=== PATIENT | male | born 1960 | race Caucasian/White ===

== ENCOUNTER 2018-10-05 07:24 | Emergency (ER) | payer BC ==
--- NOTE | 2018-10-05 08:03 | EDM.PDOC ---
ED HPI GENERAL MEDICAL PROBLEM - General Chief Complaint: Lower Extremity Injury/Pain Stated Complaint: right lower leg pain Time Seen by Provider: 10/05/18 07:43 Source of Information: Reports: Patient History Limitations: Reports: No Limitations - History of Present Illness INITIAL COMMENTS - FREE TEXT/NARRATIVE: History of present illness: []Patient complains of bruising and his right lower leg. He denies any trauma that he recalls and states he has no real pain in the leg. Review of systems: As per history of present illness and below otherwise all systems reviewed and negative. Past medical history: As per history of present illness and as reviewed below otherwise noncontributory. Surgical history: As per history of present illness and as reviewed below otherwise noncontributory. Social history: No reported history of drug or alcohol abuse. Family history: As per history of present illness and as reviewed below otherwise noncontributory. Physical exam: General: Well developed, well nourished in NAD HEENT: Atraumatic, normocephalic, pupils reactive, negative for conjunctival pallor or scleral icterus, mucous membranes moist, throat clear, neck supple, nontender, trachea midline. Lungs: Clear to auscultation, breath sounds equal bilaterally, chest nontender. Heart: S1S2, regular, negative for clicks, rubs, or JVD. Abdomen: NABS, Soft, nondistended, nontender. Negative for masses or hepatosplenomegaly. Negative for costovertebral tenderness. Pelvis: Stable nontender. Genitourinary: Deferred. Rectal: Deferred. Extremities: Right lower extremity with ecchymosis around the knee and down the leg. There is erythema of the lower half of the leg with warmth to palpation Some edema palpable no infected wounds, negative for cords or calf pain. Neurovascular unremarkable. Neuro: Awake, alert, oriented. Cranial nerves II through XII unremarkable. Cerebellum unremarkable. Motor and sensory unremarkable throughout. Exam nonfocal. Skin:warm and dry Diagnostics: Doppler ultrasound negative for DVT, CBC, chemistry Therapeutics: None ED Course: Unremarkable Impression: New onset diabetes, right leg cellulitis Prescriptions: Keflex Plan: Follow-up with primary care with Dr. Daly this Thursday as we have scheduled your appointment for you. Definitive disposition and diagnosis as appropriate pending reevaluation and review of above. Right Knee Pain Score (Numeric/FACES): 2 - Related Data Allergies Allergy/AdvReac Type Severity Reaction Status Date / Time No Known Allergies Allergy Verified 10/05/18 07:45 Home Meds: Home Meds Lisinopril 10 mg PO DAILY 10/13/14 [History] Tamsulosin HCl [Flomax] 0.4 mg PO DAILY 10/13/14 [History] amLODIPine Besylate [Amlodipine Besylate] 10 mg PO DAILY 10/13/14 [History] hydroCHLOROthiazide [Hydrochlorothiazide] 25 mg PO DAILY 10/13/14 [History] Multivitamin [Multivitamins] 1 each PO ASDIRECTED 10/17/14 [History] Milton-3/DHA/Epa/Fish Oil [Fish Oil 500 MG Softgel] 1 each PO ASDIRECTED [History] S-Adenosylmethionine Sul Tosyl [Vel-E] 400 mg PO ASDIRECTED 10/17/14 [History] Cephalexin [Keflex] 500 mg PO TID #30 capsule 10/05/18 [Rx] Past Medical History Cardiovascular History: Reports: Hypertension Respiratory History: Reports: None Gastrointestinal History: Reports: None Genitourinary History: Reports: BPH Musculoskeletal History: Reports: None Neurological History: Reports: None Psychiatric History: Reports: None Endocrine/Metabolic History: Reports: None Hematologic History: Reports: None Oncologic (Cancer) History: Reports: None Dermatologic History: Reports: None - Infectious Disease History Infectious Disease History: Reports: None - Past Surgical History HEENT Surgical History: Reports: Other (See Below) Other HEENT Surgeries/Procedures: brain surgery Social & Family History - Tobacco Use Smoking Status *Q: Never Smoker Second Hand Smoke Exposure: No - Caffeine Use Caffeine Use: Reports: None - Recreational Drug Use Recreational Drug Use: No Review of Systems - Review of Systems Review Of Systems: ROS reveals no pertinent complaints other than HPI. ED EXAM, GENERAL - Physical Exam Exam: See Below (History of present illness:) Course - Vital Signs Last Recorded V/S: Last Vital Signs Temp 97.1 F 10/05/18 07:41 Pulse 92 10/05/18 09:45 Resp 18 10/05/18 09:45 BP 125/86 10/05/18 09:45 Pulse Ox 95 10/05/18 09:45 - Orders/Labs/Meds Labs: Laboratory Tests 10/05/18 10/05/18 10/05/18 Range/Units 08:10 08:10 08:10 WBC 9.16 (4.0-11.0) K/uL RBC 4.90 (4.50-5.90) M/uL Hgb 14.4 (13.0-17.0) g/dL Hct 41.4 (38.0-50.0) % MCV 84.5 (80.0-98.0) fL MCH 29.4 (27.0-32.0) pg MCHC 34.8 (31.0-37.0) g/dL RDW Std Deviation 39.2 (28.0-62.0) fl RDW Coeff of Neil 13 (11.0-15.0) % Plt Count 234 (150-400) K/uL MPV 10.40 (7.40-12.00) fL Neut % (Auto) 75.9 (48.0-80.0) % Lymph % (Auto) 13.2 L (16.0-40.0) % Hernando % (Auto) 9.6 (0.0-15.0) % Eos % (Auto) 1.0 (0.0-7.0) % Baso % (Auto) 0.3 (0.0-1.5) % Neut # (Auto) 7.0 H (1.4-5.7) K/uL Lymph # (Auto) 1.2 (0.6-2.4) K/uL Hernando # (Auto) 0.9 H (0.0-0.8) K/uL Eos # (Auto) 0.1 (0.0-0.7) K/uL Baso # (Auto) 0.0 (0.0-0.1) K/uL Nucleated RBC % 0.0 /100WBC Nucleated RBCs # 0 K/uL INR 0.96 APTT 26.2 (18.6-31.3) SEC Sodium 136 (136-148) mmol/L Potassium 4.0 (3.5-5.1) mmol/L Chloride 100 (98-107) mmol/L Carbon Dioxide 28.1 (21.0-32.0) mmol/L BUN 18 (7.0-18.0) mg/dL Creatinine 1.2 (0.8-1.3) mg/dL Est Cr Clr Drug Dosing 69.28 mL/min Estimated GFR (MDRD) > 60.0 ml/min Glucose 239 H (74-106) mg/dL POC Glucose (60-110) mg/dL Calcium 9.1 (8.5-10.1) mg/dL Total Bilirubin 0.5 (0.2-1.0) mg/dL AST 15 (15-37) IU/L ALT 31 (14-63) IU/L Alkaline Phosphatase 126 H (46-116) U/L Total Protein 6.8 (6.4-8.2) g/dL Albumin 3.3 L (3.4-5.0) g/dL Globulin 3.5 (2.6-4.0) g/dL Albumin/Globulin Ratio 0.9 (0.9-1.6) 10/05/18 Range/Units 09:51 WBC (4.0-11.0) K/uL RBC (4.50-5.90) M/uL Hgb (13.0-17.0) g/dL Hct (38.0-50.0) % MCV (80.0-98.0) fL MCH (27.0-32.0) pg MCHC (31.0-37.0) g/dL RDW Std Deviation (28.0-62.0) fl RDW Coeff of Neil (11.0-15.0) % Plt Count (150-400) K/uL MPV (7.40-12.00) fL Neut % (Auto) (48.0-80.0) % Lymph % (Auto) (16.0-40.0) % Hernando % (Auto) (0.0-15.0) % Eos % (Auto) (0.0-7.0) % Baso % (Auto) (0.0-1.5) % Neut # (Auto) (1.4-5.7) K/uL Lymph # (Auto) (0.6-2.4) K/uL Hernando # (Auto) (0.0-0.8) K/uL Eos # (Auto) (0.0-0.7) K/uL Baso # (Auto) (0.0-0.1) K/uL Nucleated RBC % /100WBC Nucleated RBCs # K/uL INR APTT (18.6-31.3) SEC Sodium (136-148) mmol/L Potassium (3.5-5.1) mmol/L Chloride (98-107) mmol/L Carbon Dioxide (21.0-32.0) mmol/L BUN (7.0-18.0) mg/dL Creatinine (0.8-1.3) mg/dL Est Cr Clr Drug Dosing mL/min Estimated GFR (MDRD) ml/min Glucose (74-106) mg/dL POC Glucose 146 H (60-110) mg/dL Calcium (8.5-10.1) mg/dL Total Bilirubin (0.2-1.0) mg/dL AST (15-37) IU/L ALT (14-63) IU/L Alkaline Phosphatase (46-116) U/L Total Protein (6.4-8.2) g/dL Albumin (3.4-5.0) g/dL Globulin (2.6-4.0) g/dL Albumin/Globulin Ratio (0.9-1.6) Meds: Medications Discontinued Medications Generic Name Dose Route Start Last Admin Trade Name Freq PRN Reason Stop Dose Admin Ceftriaxone Sodium 1,000 mg/ 1 mls @ 1 mls/sec 10/05/18 09:04 10/05/18 09:28 Lidocaine HCl IM 10/05/18 09:05 1 mls/sec ONETIME ONE Administration Insulin Human Regular 6 unit 10/05/18 09:00 10/05/18 09:28 Novolin R SUBCUT 10/05/18 09:01 6 units ONETIME ONE Administration Protocol Departure - Departure Time of Disposition: 15:51 Disposition: Home, Self-Care 01 Condition: Good Clinical Impression: Cellulitis of right leg, Diabetes mellitus, new onset - Discharge Information *PRESCRIPTION DRUG MONITORING PROGRAM REVIEWED*: No *COPY OF PRESCRIPTION DRUG MONITORING REPORT IN PATIENT ASTER: No Prescriptions: Cephalexin [Keflex] 500 mg PO TID #30 capsule Instructions: Type 2 Diabetes Mellitus, Diagnosis, Adult, Cellulitis, Adult, [id number] Referrals: Troy Daly MD [Primary Care Provider] - Forms: ED Department Discharge Additional Instructions: The following information is given to patients seen in the emergency department who are being discharged to home. This information is to outline your options for follow-up care. We provide all patients seen in our emergency department with a follow-up referral. The need for follow-up, as well as the timing and circumstances, are variable depending upon the specifics of your emergency department visit. If you don't have a primary care physician on staff, we will provide you with a referral. We always advise you to contact your personal physician following an emergency department visit to inform them of the circumstance of the visit and for follow-up with them and/or the need for any referrals to a consulting specialist. The emergency department will also refer you to a specialist when appropriate. This referral assures that you have the opportunity for follow-up care with a specialist. All of these measure are taken in an effort to provide you with optimal care, which includes your follow-up. Under all circumstances we always encourage you to contact your private physician who remains a resource for coordinating your care. When calling for follow-up care, please make the office aware that this follow-up is from your recent emergency room visit. If for any reason you are refused follow-up, please contact the [facility] Emergency Department at and asked to speak to the emergency department charge nurse. Follow-up with Dr. Daly as scheduled. Start meds today. Please keep your appointment with Dr. Daly Thursday09/07/18 at 1:30pm. If you need to change your appointment please call [facility].
[2018-10-05 08:44] LABS: CHLORIDE,CL 100 mmol/L (98-107); SODIUM,NA 136 mmol/L (136-148)
--- NOTE | 2018-10-05 08:55 | US ---
ULTRASOUND EXAMINATION OF the right lower extremity WITH DOPPLER HISTORY: Pain FINDINGS: Examination of the right leg was performed from the groin to the calf region. All visualized segments including common femoral, proximal greater saphenous, superficial femoral, popliteal and calf veins appear patent with good compressibility and augmentation. There is no evidence of deep vein thrombosis. IMPRESSION: No evidence of a DVT.
[2018-10-05] MEDS ORDERED: Insulin Regular, Human 100 Units/ML 10 ML Vial SUBCUT ONE (09:00)
[2018-10-05] MEDS ORDERED: cefTRIAXone 1,000 MG in Lidocaine 1% 1 ML IM ONE (09:04)
[2018-10-05 10:13] VITALS: BP 125/86
== END 2018-10-05 09:45 | disposition home or self-care (01) ==
LOC: MW.ED 07:24
DX: L03.115 Cellulitis of right lower limb (principal); E11.9 Type 2 diabetes mellitus without complications; I10 Essential (primary) hypertension; Z79.899 Other long term (current) drug therapy
CPT/HCPCS: 36415; 80053; 82962; 85025; 85610; 85730; 93971; 96372; 99284; J0696; J1815-GY

== ENCOUNTER 2020-01-15 16:52 | Emergency (ER) | payer BC ==
[2020-01-15] MEDS ORDERED: Sodium Chloride 0.9% 10 ML Syringe FLUSH PRN (17:09)
[2020-01-15] MEDS ORDERED: Sodium Chloride 0.9% 2.5 ML Syringe FLUSH PRN (17:09)
[2020-01-15] MEDS ORDERED: Ketorolac 30 MG/ML SDV IVPUSH ONE (17:40)
--- NOTE | 2020-01-15 17:40 | EDM.PDOC ---
ED HPI GENERAL MEDICAL PROBLEM - General Chief Complaint: Abdominal Pain Stated Complaint: LEFT LOWER PAIN Time Seen by Provider: 01/15/20 17:40 Source of Information: Reports: Patient History Limitations: Reports: No Limitations - History of Present Illness INITIAL COMMENTS - FREE TEXT/NARRATIVE: HISTORY AND PHYSICAL: History of present illness: Patient is 59-year-old year old male presents to the ED with complaint of abdominal pain. Patient states he has had the pain for the past week. Pain is in the left lower abdomen and flank. He states pain was intermittent until today it has been more persistent. He states he had had some nausea, vomiting, and diarrhea. He reports chills and temp at home tmax 100F. Past surgical history of umbilical hernia repair. Past medical history of hypertension and diabetes. Review of systems: As per history of present illness and below otherwise all systems reviewed and negative. Past medical history: As per history of present illness and as reviewed below otherwise noncontributory. Surgical history: As per history of present illness and as reviewed below otherwise noncontributory. Social history: No reported history of drug or alcohol abuse. Family history: As per history of present illness and as reviewed below otherwise noncontributory. Physical exam: General: Patient sitting comfortably in no acute distress and nontoxic appearing HEENT: Atraumatic, normocephalic, pupils reactive, negative for conjunctival pallor or scleral icterus, mucous membranes moist, throat clear, neck supple, nontender, trachea midline. No meningeal signs. Lungs: Clear to auscultation, breath sounds equal bilaterally, chest nontender. Heart: S1S2, regular, negative for clicks, rubs, or overt murmur. Abdomen: Abdomen in distended with diffuse abdominal tenderness, more significant tenderness in the right lower abdomen. Negative for masses or hepatosplenomegaly. Negative for costovertebral tenderness. No rigidity, rebound , guarding. Pelvis: Stable nontender. Genitourinary: Deferred. Rectal: Deferred. Extremities: Atraumatic, negative for cords or calf pain. Neurovascular unremarkable. Neuro: Awake, alert, oriented. Cranial nerves II through XII unremarkable. Cerebellum unremarkable. Motor and sensory unremarkable throughout. Exam nonfocal. Notes: EKG shows left bundle branch block. No previous EKGs to compare. CT shows a markedly distended bladder, markedly enlarged polycystic left kidney , right-sided hydronephrosis. Guzman catheter was placed. 4L of urine drained in ED. Diagnostics: CBC, CMP, lipase, UA, EKG, lactate, blood culture x 2 CT abdomen pelvis w/o contrast Therapeutics: 1L NS IV 30mg Toradol IV Calcium chloride 1gm Albuterol 10mg Neb Sodium Bicarb 50mEq Impression: Hyperkalemia, acute kidney injury, urinary retention, bladder distention, polycystic kidney, hydronephrosis Plan: Discussed with Dr. Daly at [facility], patient will be transferred via ground ambulance for further care and evaluation. Definitive disposition and diagnosis as appropriate pending reevaluation and review of above. LLQ Pain Score (Numeric/FACES): 5 - Related Data Allergies Allergy/AdvReac Type Severity Reaction Status Date / Time No Known Allergies Allergy Verified 01/15/20 17:26 Home Meds: Home Meds Lisinopril 10 mg PO DAILY 10/13/14 [History] Tamsulosin HCl [Flomax] 0.8 mg PO BEDTIME 10/13/14 [History] amLODIPine Besylate [Amlodipine Besylate] 10 mg PO DAILY 10/13/14 [History] Multivitamin [Multivitamins] 1 each PO ASDIRECTED 10/17/14 [History] Rosuvastatin [Crestor] 5 mg PO DAILY 01/15/20 [History] Past Medical History Cardiovascular History: Reports: High Cholesterol, Hypertension Respiratory History: Reports: None Gastrointestinal History: Reports: None Genitourinary History: Reports: BPH Musculoskeletal History: Reports: None Neurological History: Reports: None Psychiatric History: Reports: None Endocrine/Metabolic History: Reports: None Hematologic History: Reports: None Oncologic (Cancer) History: Reports: Brain Dermatologic History: Reports: None - Infectious Disease History Infectious Disease History: Reports: None - Past Surgical History HEENT Surgical History: Reports: Other (See Below) Other HEENT Surgeries/Procedures: brain surgery GI Surgical History: Reports: Hernia, Abdominal Social & Family History - Tobacco Use Smoking Status *Q: Never Smoker - Caffeine Use Caffeine Use: Reports: Coffee - Recreational Drug Use Recreational Drug Use: No ED ROS GENERAL - Review of Systems Review Of Systems: Comprehensive ROS is negative, except as noted in HPI. ED EXAM, GI/ABD - Physical Exam Exam: See Below (see dictation) Course - Vital Signs Last Recorded V/S: Last Vital Signs Temp 96.9 F 05/24/20 17:24 Pulse 84 01/15/20 18:00 Resp 17 01/15/20 18:00 BP 158/86 H 01/15/20 18:00 Pulse Ox 95 01/15/20 18:00 - Orders/Labs/Meds Orders: Active Orders 24 hr Category Date Time Status EKG Documentation Completion [] STAT Care 01/15/20 18:38 Active Insert Guzman Catheter [Insert Urinary Catheter] [OM.PC] Care 01/15/20 20:15 Ordered Q24H RT Aerosol Therapy [RC] ASDIRECTED Care 01/15/20 18:47 Active Urinary Catheter Assessment [] ASDIRECTED Care 01/15/20 20:11 Active CULTURE BLOOD [BC] Stat Lab 01/15/20 19:10 Received CULTURE BLOOD [BC] Stat Lab 01/15/20 19:20 Received CULTURE URINE [RM] Stat Lab 01/15/20 18:29 Received Sodium Chloride 0.9% [Saline Flush] Med 01/15/20 17:09 Active 10 ml FLUSH ASDIRECTED PRN Sodium Chloride 0.9% [Saline Flush] Med 01/15/20 17:09 Active 2.5 ml FLUSH ASDIRECTED PRN Blood Culture x2 Reflex Set [OM.PC] Stat Oth 01/15/20 18:39 Ordered Saline Lock Insert [OM.PC] Stat Oth 01/15/20 17:09 Ordered Medication Orders Sodium Chloride (Saline Flush) 10 ml FLUSH ASDIRECTED PRN PRN Reason: Keep Vein Open Sodium Chloride (Saline Flush) 2.5 ml FLUSH ASDIRECTED PRN PRN Reason: Keep Vein Open Labs: Laboratory Tests 01/15/20 01/15/20 01/15/20 Range/Units 17:30 17:30 17:30 WBC 15.19 H (4.0-11.0) K/uL RBC 4.33 L (4.50-5.90) M/uL Hgb 12.8 L (13.0-17.0) g/dL Hct 38.0 (38.0-50.0) % MCV 87.8 (80.0-98.0) fL MCH 29.6 (27.0-32.0) pg MCHC 33.7 (31.0-37.0) g/dL RDW Std Deviation 43.6 (28.0-62.0) fl RDW Coeff of Neil 14 (11.0-15.0) % Plt Count 205 (150-400) K/uL MPV 11.40 (7.40-12.00) fL Add Manual Diff YES Neutrophils % (Manual) 93 H (48.0-80.0) % Band Neutrophils % 3 % Lymphocytes % (Manual) 3 L (16.0-40.0) % Monocytes % (Manual) 1 (0.0-15.0) % Nucleated RBC % 0.0 /100WBC Absolute Seg Neuts 14.1 H (1.4-5.7) Band Neutrophils # 0.5 Lymphocytes # (Manual) 0.5 L (0.6-2.4) Monocytes # (Manual) 0.2 (0.0-0.8) Nucleated RBCs # 0 K/uL Lactate 1.1 (0.20-2.00) mmol/L Sodium 135 L (136-148) mmol/L Potassium 6.1 H (3.5-5.1) mmol/L Chloride 102 (98-107) mmol/L Carbon Dioxide 18.2 L (21.0-32.0) mmol/L BUN 84 H (7.0-18.0) mg/dL Creatinine 5.7 H (0.8-1.3) mg/dL Est Cr Clr Drug Dosing 13.95 mL/min Estimated GFR (MDRD) 10.3 ml/min Glucose 166 H (74-106) mg/dL Calcium 9.2 (8.5-10.1) mg/dL Total Bilirubin 0.3 (0.2-1.0) mg/dL AST 12 L (15-37) IU/L ALT 21 (14-63) IU/L Alkaline Phosphatase 103 (46-116) U/L Total Protein 8.0 (6.4-8.2) g/dL Albumin 4.2 (3.4-5.0) g/dL Globulin 3.8 (2.6-4.0) g/dL Albumin/Globulin Ratio 1.1 (0.9-1.6) Lipase 182 (73-393) U/L Urine Color Urine Appearance Urine pH (5.0-8.0) Ur Specific [place] (1.001-1.035) Urine Protein (NEGATIVE) mg/dL Urine Glucose (UA) (NEGATIVE) mg/dL Urine Ketones (NEGATIVE) mg/dL Urine Occult Blood (NEGATIVE) Urine Nitrite (NEGATIVE) Urine Bilirubin (NEGATIVE) Urine Urobilinogen (<2.0) EU/dL Ur Leukocyte Esterase (NEGATIVE) Urine RBC (0-2/HPF) Urine WBC (0-5/HPF) Ur Epithelial Cells (NONE-FEW) Urine Bacteria (NEGATIVE) 01/15/20 Range/Units 18:29 WBC (4.0-11.0) K/uL RBC (4.50-5.90) M/uL Hgb (13.0-17.0) g/dL Hct (38.0-50.0) % MCV (80.0-98.0) fL MCH (27.0-32.0) pg MCHC (31.0-37.0) g/dL RDW Std Deviation (28.0-62.0) fl RDW Coeff of Neil (11.0-15.0) % Plt Count (150-400) K/uL MPV (7.40-12.00) fL Add Manual Diff Neutrophils % (Manual) (48.0-80.0) % Band Neutrophils % % Lymphocytes % (Manual) (16.0-40.0) % Monocytes % (Manual) (0.0-15.0) % Nucleated RBC % /100WBC Absolute Seg Neuts (1.4-5.7) Band Neutrophils # Lymphocytes # (Manual) (0.6-2.4) Monocytes # (Manual) (0.0-0.8) Nucleated RBCs # K/uL Lactate (0.20-2.00) mmol/L Sodium (136-148) mmol/L Potassium (3.5-5.1) mmol/L Chloride (98-107) mmol/L Carbon Dioxide (21.0-32.0) mmol/L BUN (7.0-18.0) mg/dL Creatinine (0.8-1.3) mg/dL Est Cr Clr Drug Dosing mL/min Estimated GFR (MDRD) ml/min Glucose (74-106) mg/dL Calcium (8.5-10.1) mg/dL Total Bilirubin (0.2-1.0) mg/dL AST (15-37) IU/L ALT (14-63) IU/L Alkaline Phosphatase (46-116) U/L Total Protein (6.4-8.2) g/dL Albumin (3.4-5.0) g/dL Globulin (2.6-4.0) g/dL Albumin/Globulin Ratio (0.9-1.6) Lipase (73-393) U/L Urine Color YELLOW Urine Appearance SLT CLOUDY Urine pH 5.5 (5.0-8.0) Ur Specific [place] <= 1.005 (1.001-1.035) Urine Protein NEGATIVE (NEGATIVE) mg/dL Urine Glucose (UA) NEGATIVE (NEGATIVE) mg/dL Urine Ketones NEGATIVE (NEGATIVE) mg/dL Urine Occult Blood SMALL H (NEGATIVE) Urine Nitrite NEGATIVE (NEGATIVE) Urine Bilirubin NEGATIVE (NEGATIVE) Urine Urobilinogen 0.2 (<2.0) EU/dL Ur Leukocyte Esterase TRACE H (NEGATIVE) Urine RBC 1-3 (0-2/HPF) Urine WBC 1-3 (0-5/HPF) Ur Epithelial Cells RARE (NONE-FEW) Urine Bacteria RARE (NEGATIVE) Meds: Medications Generic Name Dose Route Start Last Admin Trade Name Freq PRN Reason Stop Dose Admin Sodium Chloride 10 ml 01/15/20 17:09 Saline Flush FLUSH ASDIRECTED PRN Keep Vein Open Sodium Chloride 2.5 ml 01/15/20 17:09 Saline Flush FLUSH ASDIRECTED PRN Keep Vein Open Discontinued Medications Generic Name Dose Route Start Last Admin Trade Name Freq PRN Reason Stop Dose Admin Albuterol 10 mg 01/15/20 18:47 01/15/20 19:09 Proventil Neb Soln NEB 01/15/20 18:48 10 mg ONETIME ONE Administration Calcium Chloride 1 gm 01/15/20 18:38 01/15/20 19:28 Calcium Chloride 10% IVPUSH 01/15/20 18:39 1 gm ONETIME ONE Administration Ketorolac Tromethamine 30 mg 01/15/20 17:40 01/15/20 17:48 Toradol IVPUSH 01/15/20 17:41 30 mg ONETIME ONE Administration Sodium Bicarbonate 50 meq 01/15/20 18:47 01/15/20 19:14 Sodium Bicarbonate 8.4% IVPUSH 01/15/20 18:48 50 meq ONETIME ONE Administration Departure - Departure Time of Disposition: 20:21 Disposition: DC/Tfer to Acute Hospital 02 Condition: Good Clinical Impression: Acute kidney injury, Hyperkalemia, Bladder distention, Polycystic kidney, Hydronephrosis - Discharge Information Referrals: Troy Daly MD [Primary Care Provider] - Forms: ED Department Discharge Sepsis Event Note - Evaluation Sepsis Screening Result: No Definite Risk - Focused Exam Vital Signs: Vital Signs Temp Pulse Resp BP Pulse Ox 01/15/20 18:00 84 17 158/86 H 95 01/15/20 17:24 96.9 F 89 18 164/77 H 96 Date Exam was Performed: 01/15/20 Time Exam was Performed: 20:13 - My Orders Last 24 Hours: My Active Orders 01/15/20 17:09 Sodium Chloride 0.9% [Saline Flush] 10 ml FLUSH ASDIRECTED PRN Sodium Chloride 0.9% [Saline Flush] 2.5 ml FLUSH ASDIRECTED PRN Saline Lock Insert [OM.PC] Stat 01/15/20 18:29 CULTURE URINE [RM] Stat 01/15/20 18:38 EKG Documentation Completion [RC] STAT 01/15/20 18:39 Blood Culture x2 Reflex Set [OM.PC] Stat 01/15/20 18:47 RT Aerosol Therapy [RC] ASDIRECTED 01/15/20 19:10 CULTURE BLOOD [BC] Stat 01/15/20 19:20 CULTURE BLOOD [BC] Stat 01/15/20 20:11 Urinary Catheter Assessment [RC] ASDIRECTED 01/15/20 20:15 Insert Guzman Catheter [Insert Urinary Catheter] [OM.PC] Q24H - Assessment/Plan Last 24 Hours: My Active Orders 01/15/20 17:09 Sodium Chloride 0.9% [Saline Flush] 10 ml FLUSH ASDIRECTED PRN Sodium Chloride 0.9% [Saline Flush] 2.5 ml FLUSH ASDIRECTED PRN Saline Lock Insert [OM.PC] Stat 01/15/20 18:29 CULTURE URINE [RM] Stat 01/15/20 18:38 EKG Documentation Completion [RC] STAT 01/15/20 18:39 Blood Culture x2 Reflex Set [OM.PC] Stat 01/15/20 18:47 RT Aerosol Therapy [RC] ASDIRECTED 01/15/20 19:10 CULTURE BLOOD [BC] Stat 01/15/20 19:20 CULTURE BLOOD [BC] Stat 01/15/20 20:11 Urinary Catheter Assessment [RC] ASDIRECTED 01/15/20 20:15 Insert Guzman Catheter [Insert Urinary Catheter] [OM.PC] Q24H
[2020-01-15 18:06] LABS: CARBON DIOXIDE,CO2 18.2 mmol/L (21.0-32.0); POTASSIUM,K 6.1 mmol/L (3.5-5.1)
[2020-01-15] MEDS ORDERED: Calcium Chloride 10% 1 GM/10 ML Syringe IVPUSH ONE (18:38)
[2020-01-15] MEDS ORDERED: Sodium Bicarbonate 8.4% 50 MEQ/50 ML Syringe IVPUSH ONE (18:47)
[2020-01-15] MEDS ORDERED: Albuterol 0.083% 2.5 MG/3 ML Neb Soln NEB ONE (18:47)
--- NOTE | 2020-01-15 19:55 | CT ---
Indication: Flank pain. Technique: Multiple contiguous axial images were obtained from the lung bases through the symphysis pubis without intravenous contrast enhancement. Please note that all CT scans at this facility use dose modulation, iterative reconstruction, and/or weight-based dosing when appropriate to reduce radiation dose to as low as reasonably achievable. Comparison: None Findings: Heart is normal in size. Coronary artery calcifications are identified. The lung bases are clear. No infiltrate, pleural effusion, or pneumothorax is identified. The liver, spleen, gallbladder are normal. The right kidney demonstrates hydronephrosis. Right-sided hydroureter is identified. Enlargement of a polycystic left kidney is identified. The left kidney measures approximately 22 x 18 x 22 cm in size. The ureter is not definitely identified on the left. The bladder is markedly enlarged measuring approximately 18 x 18 x 18 cm in size. The source of the obstruction is not identified. In the pelvis, an enlarged prostate gland is identified up. However this is only moderate enlargement. The small and large bowel are normal in caliber. The appendix is normal in size. No free air free fluid is identified within the abdomen or pelvis. Impression: Markedly enlarged polycystic left kidney. Marked distention of the urinary bladder. Right-sided hydronephrosis. The source of the obstruction is uncertain. These findings were discussed with Carmela Briones at the time of this dictation. Please note that all CT scans at this facility use dose modulation, iterative reconstruction, and/or weight-based dosing when appropriate to reduce radiation dose to as low as reasonably achievable. Dictated by Kim Frances MD @ Jan 15 2020 7:39PM Signed by Dr. Kim Frances @ Jan 15 2020 7:53PM
[2020-01-15 20:18] VITALS: BP 142/81; PULSE 101
== END 2020-01-15 20:56 ==
LOC: MW.ED 16:52
DX: N17.9 Acute kidney failure, unspecified (principal); N13.2 Hydronephrosis with renal and ureteral calculous obstruction; E87.5 Hyperkalemia; N28.1 Cyst of kidney, acquired; N32.89 Other specified disorders of bladder; E78.00 Pure hypercholesterolemia, unspecified; I10 Essential (primary) hypertension; N40.0 Benign prostatic hyperplasia without lower urinary tract symptoms; Z79.899 Other long term (current) drug therapy
CPT/HCPCS: 36415; 51702; 74176; 80053; 81001; 83605; 83690; 85025; 87040; 87086; 93005; 94640; 96374; 96375; 99285; J1885

== ENCOUNTER 2020-03-03 14:29 | Emergency (ER) | payer BC ==
[2020-03-03 14:53] VITALS: BP 135/77; PULSE 70
--- NOTE | 2020-03-03 15:16 | EDM.PDOC ---
ED HPI GENERAL MEDICAL PROBLEM - General Chief Complaint: Genitourinary Problem Stated Complaint: NEEDS A CATHETER Time Seen by Provider: 03/03/20 15:05 - History of Present Illness INITIAL COMMENTS - FREE TEXT/NARRATIVE: History of present illness: Patient presents requesting a Guzman catheter placement she has normally uses a suprapubic catheter but his suprapubic became broken and dislodged during work the other day and he is now feeling like he is retaining urine he has multiple urological issues he feels well otherwise but he wants to have a Guzman placed until he can follow-up this week with his urologist. He does not feel ill no dysuria no fever no chills nothing makes it better or worse Review of systems: As per history of present illness and below otherwise all systems reviewed and negative. Past medical history: As per history of present illness and as reviewed below otherwise noncontributory. Surgical history: As per history of present illness and as reviewed below otherwise noncontributory. Social history: No reported history of drug or alcohol abuse. Family history: As per history of present illness and as reviewed below otherwise noncontributory. Physical exam: HEENT: Atraumatic, normocephalic, pupils reactive, negative for conjunctival pallor or scleral icterus, mucous membranes moist, throat clear, neck supple, nontender, trachea midline. Lungs: Clear to auscultation, breath sounds equal bilaterally, chest nontender. Heart: S1S2, regular, negative for clicks, rubs, or JVD. Abdomen: Soft, nondistended, nontender. Negative for masses or hepatosplenomegaly. Negative for costovertebral tenderness. Pelvis: Stable nontender. Genitourinary: Deferred. Rectal: Deferred. Extremities: Atraumatic, negative for cords or calf pain. Neurovascular unremarkable. Neuro: Awake, alert, oriented. Cranial nerves II through XII unremarkable. Cerebellum unremarkable. Motor and sensory unremarkable throughout. Exam nonfocal. Diagnostics: [] Therapeutics: [] Impression: [] Plan: Guzman discharge he has a urologist to follow-up with Thursday [] Definitive disposition and diagnosis as appropriate pending reevaluation and review of above. - Related Data Allergies Allergy/AdvReac Type Severity Reaction Status Date / Time No Known Allergies Allergy Verified 03/03/20 14:56 Home Meds: Home Meds Lisinopril 10 mg PO DAILY 10/13/14 [History] Tamsulosin HCl [Flomax] 0.8 mg PO BEDTIME 10/13/14 [History] amLODIPine Besylate [Amlodipine Besylate] 10 mg PO DAILY 10/13/14 [History] Multivitamin [Multivitamins] 1 each PO ASDIRECTED 10/17/14 [History] Rosuvastatin [Crestor] 5 mg PO DAILY 01/15/20 [History] Past Medical History HEENT History: Reports: Impaired Vision, Other (See Below) Other HEENT History: wears glasses Cardiovascular History: Reports: High Cholesterol, Hypertension Respiratory History: Reports: None Gastrointestinal History: Reports: None Genitourinary History: Reports: BPH Musculoskeletal History: Reports: None Neurological History: Reports: None Psychiatric History: Reports: None Endocrine/Metabolic History: Reports: None Hematologic History: Reports: None Oncologic (Cancer) History: Reports: Brain Dermatologic History: Reports: None - Infectious Disease History Infectious Disease History: Reports: None - Past Surgical History HEENT Surgical History: Reports: Other (See Below) Other HEENT Surgeries/Procedures: brain surgery Cardiovascular Surgical History: Reports: None GI Surgical History: Reports: Hernia, Abdominal Male Surgical History: Reports: Other (See Below) Other Male Surgeries/Procedures: with nephrostomy tube, suprapubic cath Oncologic Surgical History: Reports: None Social & Family History - Family History Family Medical History: Noncontributory - Tobacco Use Smoking Status *Q: Never Smoker Second Hand Smoke Exposure: No - Caffeine Use Caffeine Use: Reports: None - Recreational Drug Use Recreational Drug Use: No ED ROS GENERAL - Review of Systems Review Of Systems: See Below ED EXAM, GENERAL - Physical Exam Exam: See Below Course - Vital Signs Last Recorded V/S: Last Vital Signs Temp 36.4 C 03/03/20 14:47 Pulse 70 03/03/20 14:47 Resp 17 03/03/20 14:47 BP 135/77 03/03/20 14:47 Pulse Ox 98 03/03/20 14:47 - Orders/Labs/Meds Orders: Active Orders 24 hr Category Date Time Status Insert Guzman Catheter [Insert Urinary Catheter] [OM.PC] Care 03/03/20 15:15 Ordered Q24H Urinary Catheter Assessment [RC] ASDIRECTED Care 03/03/20 15:13 Ordered Departure - Departure Time of Disposition: 15:14 Disposition: Home, Self-Care 01 Condition: Good Clinical Impression: Urinary retention - Discharge Information *PRESCRIPTION DRUG MONITORING PROGRAM REVIEWED*: Not Applicable *COPY OF PRESCRIPTION DRUG MONITORING REPORT IN PATIENT ASTER: Not Applicable Instructions: Indwelling Urinary Catheter Care, Adult Referrals: Troy Daly MD [Primary Care Provider] - Additional Instructions: The following information is given to patients seen in the emergency department who are being discharged to home. This information is to outline your options for follow-up care. We provide all patients seen in our emergency department with a follow-up referral. The need for follow-up, as well as the timing and circumstances, are variable depending upon the specifics of your emergency department visit. If you don't have a primary care physician on staff, we will provide you with a referral. We always advise you to contact your personal physician following an emergency department visit to inform them of the circumstance of the visit and for follow-up with them and/or the need for any referrals to a consulting specialist. The emergency department will also refer you to a specialist when appropriate. This referral assures that you have the opportunity for follow-up care with a specialist. All of these measure are taken in an effort to provide you with optimal care, which includes your follow-up. Under all circumstances we always encourage you to contact your private physician who remains a resource for coordinating your care. When calling for follow-up care, please make the office aware that this follow-up is from your recent emergency room visit. If for any reason you are refused follow-up, please contact the [facility] Emergency Department at and asked to speak to the emergency department charge nurse. Sepsis Event Note (ED) - Evaluation Sepsis Screening Result: No Definite Risk - Focused Exam Vital Signs: Vital Signs Temp Pulse Resp BP Pulse Ox 03/03/20 14:47 36.4 C 70 17 135/77 98 - My Orders Last 24 Hours: My Active Orders 03/03/20 15:13 Urinary Catheter Assessment [RC] ASDIRECTED 03/03/20 15:15 Insert Guzman Catheter [Insert Urinary Catheter] [OM.PC] Q24H - Assessment/Plan Last 24 Hours: My Active Orders 03/03/20 15:13 Urinary Catheter Assessment [RC] ASDIRECTED 03/03/20 15:15 Insert Guzman Catheter [Insert Urinary Catheter] [OM.PC] Q24H
== END 2020-03-03 15:53 | disposition home or self-care (01) ==
LOC: MW.ED 14:29
DX: N40.1 Benign prostatic hyperplasia with lower urinary tract symptoms (principal); R33.8 Other retention of urine; E78.00 Pure hypercholesterolemia, unspecified; I10 Essential (primary) hypertension; Z79.899 Other long term (current) drug therapy
CPT/HCPCS: 51702; 99282; 99283

== ENCOUNTER 2024-04-15 13:33 | Emergency (ER) | payer BC ==
[2024-04-15] MEDS ORDERED: Sodium Chloride 0.9% 10 ML Syringe FLUSH PRN (14:02)
[2024-04-15] MEDS ORDERED: Sodium Chloride 0.9% 2.5 ML Syringe FLUSH PRN (14:02)
[2024-04-15 14:10] LABS: BASOPHILS ABSOLUTE AUTO 0.05 K/uL (0.00-0.20); BASOPHILS PERCENT AUTO 0.5 % (0.0-1.0); EOSINOPHILS ABSOLUTE AUTO 0.15 K/uL (0.00-0.45); EOSINOPHILS PERCENT AUTO 1.5 % (0.0-6.0); HEMATOCRIT 42.2 % (42.0-52.0); HEMOGLOBIN 14.2 g/dL (14.0-18.0); IMMATURE GRAN ABSOLUTE AUTO 0.03 K/uL (0.00-0.05); IMMATURE GRAN PERCENT AUTO 0.3 % (0.0-0.4); LYMPHOCYTES ABSOLUTE AUTO 1.46 K/uL (1.00-4.80); LYMPHOCYTES PERCENT AUTO 14.9 % (24.0-44.0); MEAN CORPUSCULAR HEMOGLOBIN 28.7 pg (28.0-32.0); MEAN CORPUSCULAR HGB CONC 33.6 g/dL (32.0-36.0); MEAN CORPUSCULAR VOLUME 85.4 fL (83.0-99.0); MONOCYTES ABSOLUTE AUTO 0.81 K/uL (0.00-0.80); MONOCYTES PERCENT AUTO 8.3 % (0.0-8.0); NEUTROPHILS PERCENT AUTO 74.5 % (41.0-71.0); PLATELET COUNT,PLT 229 K/uL (150-400); RED BLOOD CELL COUNT 4.94 M/uL (4.52-5.90)
[2024-04-15 14:17] LABS: INR 1.07 (0.86-1.11)
[2024-04-15 14:29] LABS: A/G RATIO 1.1 (0.9-1.6); ALBUMIN 3.7 g/dL (3.4-5.0); BILIRUBIN TOTAL 0.5 mg/dL (0.2-1.0); CALCIUM 9.4 mg/dL (8.5-10.1); CARBON DIOXIDE,CO2 23.8 mmol/L (21.0-32.0); CREATININE 2.5 mg/dL (0.8-1.3); EST CRCL DRUG DOSING (CG) 31.23 mL/min; POTASSIUM,K 4.6 mmol/L (3.5-5.1)
[2024-04-15] MEDS: Sodium Chloride 0.9% 1,000 ML IV ONE (14:38)
[2024-04-15 18:16] VITALS: BP 142/65; PULSE 47
== END 2024-04-15 18:14 | disposition home or self-care (01) ==
LOC: MW.ED 13:33
DX: R55 Syncope and collapse (principal); N28.9 Disorder of kidney and ureter, unspecified; R00.1 Bradycardia, unspecified; I10 Essential (primary) hypertension; E78.00 Pure hypercholesterolemia, unspecified; Z79.899 Other long term (current) drug therapy; Z75.8 Other problems related to medical facilities and other health care
CPT/HCPCS: 36415; 70450; 71045; 72125; 80053; 83690; 84484; 85025; 85610; 93005; 96360; 99285; J7030; 93010; 99283

== ENCOUNTER 2024-06-15 12:46 | Observation (INO) | payer BC ==
[2024-06-15 12:59] LABS: BASOPHILS ABSOLUTE AUTO 0.04 K/uL (0.00-0.20); BASOPHILS PERCENT AUTO 0.4 % (0.0-1.0); EOSINOPHILS ABSOLUTE AUTO 0.15 K/uL (0.00-0.45); EOSINOPHILS PERCENT AUTO 1.6 % (0.0-6.0); HEMATOCRIT 49.5 % (42.0-52.0); HEMOGLOBIN 16.6 g/dL (14.0-18.0); IMMATURE GRAN ABSOLUTE AUTO 0.06 K/uL (0.00-0.05); IMMATURE GRAN PERCENT AUTO 0.6 % (0.0-0.4); LYMPHOCYTES ABSOLUTE AUTO 1.32 K/uL (1.00-4.80); MEAN CORPUSCULAR HGB CONC 33.5 g/dL (32.0-36.0); MEAN CORPUSCULAR VOLUME 86.4 fL (83.0-99.0); MEAN PLATELET VOLUME 10.4 fL (9.4-12.4); MONOCYTES ABSOLUTE AUTO 0.74 K/uL (0.00-0.80); MONOCYTES PERCENT AUTO 7.8 % (0.0-8.0); NEUTROPHILS ABSOLUTE AUTO 7.12 K/uL (1.80-7.70); NEUTROPHILS PERCENT AUTO 75.6 % (41.0-71.0); PLATELET COUNT,PLT 203 K/uL (150-400); RED BLOOD CELL COUNT 5.73 M/uL (4.52-5.90); WHITE BLOOD CELL COUNT,WBC 9.43 K/uL (3.9-11.3)
[2024-06-15 13:13] LABS: INR 1.04 (0.86-1.11)
[2024-06-15] MEDS: Diphtheria,Pertussis(Acell),Tetanus Vaccine 0.5 ML Syringe IM ONE (13:15)
[2024-06-15] MEDS: Sodium Chloride 0.9% 10 ML Syringe FLUSH PRN (13:16)
[2024-06-15] MEDS: Sodium Chloride 0.9% 2.5 ML Syringe FLUSH PRN (13:16)
[2024-06-15 13:36] LABS: A/G RATIO 1.2 (0.9-1.6); ALANINE AMINOTRANSFERASE,ALT 29 IU/L (14-63); ALBUMIN 4.4 g/dL (3.4-5.0); ALKALINE PHOSPHATASE 111 U/L (46-116); ASPARTATE AMNIOTRANSFERASE,AST 23 IU/L (15-37); BILIRUBIN TOTAL 0.3 mg/dL (0.2-1.0); BLOOD UREA NITROGEN,BUN 42 mg/dL (7.0-18.0); CALCIUM 9.8 mg/dL (8.5-10.1); CARBON DIOXIDE,CO2 25.4 mmol/L (21.0-32.0); CHLORIDE,CL 100 mmol/L (98-107); CREATININE 2.4 mg/dL (0.8-1.3); ESTIMATED GFR 29 mL/min (>60); ETHANOL BLOOD MEDICAL < 3.0 mg/dL; GLUCOSE RANDOM 126 mg/dL (74-106); POTASSIUM,K 4.9 mmol/L (3.5-5.1); PROTEIN TOTAL,TP 8.1 g/dL (6.4-8.2); SODIUM,NA 138 mmol/L (136-148)
[2024-06-15] MEDS ORDERED: Ondansetron 4 MG Tab.DIS PO PRN (16:40)
[2024-06-15] MEDS ORDERED: Polyethylene Glycol 3350 Powder 17 GM Packet PO PRN (16:40)
[2024-06-15] MEDS ORDERED: Bisacodyl 5 MG Tab PO PRN (16:40)
[2024-06-15 17:16] LABS: TSH ULTRASENSITIVE 2.52 uIU/mL (0.36-3.74)
[2024-06-15 17:23] LABS: HEMOGLOBIN A1C 6.2 %
[2024-06-15 18:17] LABS: APPEARANCE,URINE CLEAR; BILIRUBIN,URINE NEGATIVE (NEGATIVE); COLOR,URINE YELLOW; GLUCOSE,URINE NEGATIVE (NEGATIVE); KETONES,URINE NEGATIVE (NEGATIVE); LEUKOCYTE ESTERASE,URINE NEGATIVE (NEGATIVE); NITRITE,URINE NEGATIVE (NEGATIVE); OCCULT BLOOD,URINE NEGATIVE (NEGATIVE); PROTEIN,URINE NEGATIVE (NEGATIVE); UROBILINOGEN,URINE 0.2 EU/dL (<2.0)
[2024-06-15 18:26] LABS: AMPHETAMINES SCREEN, URINE NEGATIVE (CUTOFF=500); BARBITURATE SCREEN,URINE NEGATIVE (CUTOFF=200); BENZODIAZEPINES SCREEN,URINE NEGATIVE (CUTOFF=150); BUPRENORPHINE SCREEN,URINE NEGATIVE (CUTOFF=10); METHADONE SCREEN, URINE NEGATIVE (CUTOFF=200); METHAMPHETAMINES SCREEN, URINE NEGATIVE (CUTOFF=500); OXYCODONE SCREEN,URINE NEGATIVE (CUT0FF=100); PCP SCREEN,URINE NEGATIVE (CUTOFF=25); THC SCREEN,URINE 20 NG/ML NEGATIVE (CUTOFF=50)
[2024-06-15] MEDS: Acetaminophen 325 MG Tab PO PRN (19:02)
[2024-06-15] MEDS: Amiodarone 200 MG Tab PO SCH (21:34)
[2024-06-15] MEDS: Spironolactone 25 MG Tab PO SCH (21:34)
[2024-06-15] MEDS: Furosemide 40 MG Tab PO SCH (21:35)
[2024-06-15] MEDS: Losartan 25 MG Tab PO SCH (21:35)
[2024-06-15] MEDS: Metoprolol Succinate 50 MG Tab.ER PO SCH (21:35)
[2024-06-16] MEDS: levETIRAcetam 500 MG Tab PO SCH (04:55)
[2024-06-16 06:25] LABS: BASOPHILS ABSOLUTE AUTO 0.04 K/uL (0.00-0.20); BASOPHILS PERCENT AUTO 0.4 % (0.0-1.0); EOSINOPHILS ABSOLUTE AUTO 0.16 K/uL (0.00-0.45); EOSINOPHILS PERCENT AUTO 1.8 % (0.0-6.0); HEMATOCRIT 45.8 % (42.0-52.0); HEMOGLOBIN 14.9 g/dL (14.0-18.0); IMMATURE GRAN ABSOLUTE AUTO 0.07 K/uL (0.00-0.05); IMMATURE GRAN PERCENT AUTO 0.8 % (0.0-0.4); LYMPHOCYTES ABSOLUTE AUTO 1.45 K/uL (1.00-4.80); LYMPHOCYTES PERCENT AUTO 16.2 % (24.0-44.0); MEAN CORPUSCULAR HEMOGLOBIN 28.6 pg (28.0-32.0); MEAN CORPUSCULAR HGB CONC 32.5 g/dL (32.0-36.0); MEAN CORPUSCULAR VOLUME 87.9 fL (83.0-99.0); MEAN PLATELET VOLUME 11.1 fL (9.4-12.4); MONOCYTES ABSOLUTE AUTO 0.89 K/uL (0.00-0.80); NEUTROPHILS ABSOLUTE AUTO 6.33 K/uL (1.80-7.70); NEUTROPHILS PERCENT AUTO 70.8 % (41.0-71.0); PLATELET COUNT,PLT 185 K/uL (150-400); RED BLOOD CELL COUNT 5.21 M/uL (4.52-5.90); WHITE BLOOD CELL COUNT,WBC 8.94 K/uL (3.9-11.3)
[2024-06-16 07:06] LABS: A/G RATIO 1.2 (0.9-1.6); ALBUMIN 3.7 g/dL (3.4-5.0); BILIRUBIN TOTAL 0.4 mg/dL (0.2-1.0); CALCIUM 8.9 mg/dL (8.5-10.1); CARBON DIOXIDE,CO2 26.3 mmol/L (21.0-32.0); CREATININE 2.2 mg/dL (0.8-1.3); EST CRCL DRUG DOSING (CG) 33.92 mL/min; POTASSIUM,K 4.4 mmol/L (3.5-5.1); PROTEIN TOTAL,TP 6.9 g/dL (6.4-8.2)
[2024-06-16] MEDS: Gadobenate Dimeglumine 529 MG/ML 20 ML SDV IVPUSH ONE (08:44)
[2024-06-16] MEDS: buPROPion 150 MG Tab.ER PO SCH (09:32)
[2024-06-16] MEDS: Furosemide 40 MG Tab PO SCH (09:37)
[2024-06-16 11:24] VITALS: BP 116/64; PULSE 62
== END 2024-06-16 12:05 ==
LOC: MW.ED 12:46 → MW.MS 15:45
PROVIDERS: ADMIT Internal Medicine; ATTEND Internal Medicine
DX: R56.9 Unspecified convulsions (principal); I48.91 Unspecified atrial fibrillation; I10 Essential (primary) hypertension; E78.5 Hyperlipidemia, unspecified; I25.10 Atherosclerotic heart disease of native coronary artery without angina pectoris; Z95.1 Presence of aortocoronary bypass graft; Z79.01 Long term (current) use of anticoagulants; Z79.899 Other long term (current) drug therapy
CPT/HCPCS: 36415; 70450; 70553; 72125; 80053; 80305; 80307; 81003; 83036; 84443; 85025; 85610; 90471; 90715; 93005; 96374; 99285; A9270; A9577; G0378; J1953; J3490; J7060; 12002; 93010; 99283